=== PATIENT | male | born 1955 | race Two or more races ===

== ENCOUNTER 2022-10-07 16:00 | Inpatient (IN) | payer MEDICAID, OTHER ==
[~2022-10-07] VITALS: Ht 167.6 cm; Wt 78.2 kg
[~2022-10-07 16:00] MED LIST: AMLO-258 PO; B CO1TAB7 PO; CARV6 PO; CEPH-558 PO; CLIN300C58 PO; FURO80 PO; INSLAN SQ; LEVO25TA9 PO; NIFE-141 PO; OMEP20 PO; PRAV10TA39 PO; SEVE800T17 PO
[2022-10-07] MEDS ORDERED: DOCU-385 PO (16:13)
[2022-10-07] MEDS ORDERED: OMEP20 PO (16:13)
[2022-10-07] MEDS ORDERED: NAPR-1197 PO (16:13)
[2022-10-07] MEDS ORDERED: ACETAMINOPHEN 500 MG TABLET PO ONE (16:30)
[2022-10-07] MEDS ORDERED: CEFEPIME HCL 2 GM in DEXTROSE 5%-WATER 50 ML IV ONE (17:00)
[2022-10-07] MEDS ORDERED: VANCOMYCIN HCL 1.25 GM in DEXTROSE 5%-WATER 250 ML IV ONE (17:00)
[2022-10-07 17:15] LABS: BASOPHILS % (AUTO) 0.5 % (0.0-2.0); EOSINOPHILS % (AUTO) 3.3 % (1.0-6.0); HEMOGLOBIN 11.8 g/dL (13.5-17.5); LYMPHOCYTES # (AUTO) 1.4 K/uL (1.0-4.8); LYMPHOCYTES % (AUTO) 11.2 % (22.0-44.0); MEAN CORPUSCULAR HEMOGLOBIN 28.2 pg (26.0-34.0); MEAN CORPUSCULAR HGB CONC 31.8 G/dL (31.0-37.0); MEAN CORPUSCULAR VOLUME 89 fL (80-100); MONOCYTES # (AUTO) 1.2 K/uL (0.1-1.0); MONOCYTES % (AUTO) 9.4 % (2.0-9.0); NEUTROPHILS # (AUTO) 9.2 K/uL (1.8-7.7); NEUTROPHILS % (AUTO) 75.6 % (40.0-70.0); PLATELET COUNT (AUTO) 269 K/uL (150-450); RED BLOOD CELL COUNT(AUTO) 4.17 MIL/uL (4.50-5.90); RED CELL DISTRIBUTION WIDTH 14.2 % (11.5-14.5)
[2022-10-07] MEDS ORDERED: MORPHINE SULFATE 2 MG/ML SYRINGE IVP ONE (17:15)
[2022-10-07 17:30] LABS: ALBUMIN 4.1 g/dL (3.4-5.0); BILIRUBIN,TOTAL 0.5 mg/dL (0.1-1.0); CALCIUM, TOTAL 9.3 mg/dL (8.8-10.5); CREATININE 8.3 mg/dL (0.60-1.30); TOTAL PROTEIN, SERUM 8.4 g/dL (6.4-8.2)
[2022-10-07 17:32] LABS: LACTIC ACID 0.7 mmol/L (0.4-2.0)
[2022-10-07] MEDS ORDERED: DEXTROSE 50%-WATER 25 GM/50 ML SYRINGE IVP ONE (17:45)
[2022-10-07] MEDS ORDERED: INSULIN REGULAR, HUMAN 100 UNITS/ML IVP ONE (17:45)
[2022-10-07] MEDS ORDERED: CALCIUM GLUCONATE 100 MG/ML 10 ML IVP ONE (17:45)
[2022-10-07] MEDS ORDERED: AmLODIPine BESYLATE 10 MG TABLET PO ONE (17:45)
[2022-10-07] MEDS ORDERED: ALBUTEROL SULFATE 2.5 MG/0.5 ML 5 ML NEB SOLUTION NEB ONE (17:45)
[2022-10-07] MEDS ORDERED: ONDANSETRON HCL 4 MG/2 ML VIAL IVP PRN (18:45)
[2022-10-07] MEDS ORDERED: 0.9% SODIUM CHLORIDE 10 ML SYRINGE IVP PRN (18:45)
[2022-10-07] MEDS ORDERED: ACETAMINOPHEN 325 MG TABLET PO PRN (18:45)
[2022-10-07 19:30] VITALS: PULSE 67; RESP 16; O2SAT 100
[2022-10-07] MEDS ORDERED: ALBUTEROL SULFATE 2.5 MG/0.5 ML NEB SOLUTION NEB ONE (19:30)
[2022-10-07 21:52] VITALS: BP 131/66; PULSE 69; RESP 20; TEMP 98
[2022-10-07] MEDS ORDERED: SODIUM ZIRCONIUM CYCLOSILICATE 5 GM POWDER PACKET PO ONE (23:00)
[2022-10-08] VITALS (14 sets, daily range): BP systolic 124–161; BP diastolic 64–81; PULSE 59–97; RESP 16–19; TEMP 97.5–98.2; O2SAT 97
[2022-10-08 00:04] LABS: CALCIUM, TOTAL 8.8 mg/dL (8.8-10.5); CREATININE 8.89 mg/dL (0.60-1.30); POTASSIUM 5.1 mmol/L (3.5-5.1)
[2022-10-08 07:21] LABS: BASOPHILS % (AUTO) 1.1 % (0.0-2.0); HEMATOCRIT 34.1 % (41-53); HEMOGLOBIN 11.3 g/dL (13.5-17.5); LYMPHOCYTES # (AUTO) 1.2 K/uL (1.0-4.8); LYMPHOCYTES % (AUTO) 15.6 % (22.0-44.0); MEAN CORPUSCULAR HEMOGLOBIN 29.3 pg (26.0-34.0); MEAN CORPUSCULAR HGB CONC 33.1 G/dL (31.0-37.0); MEAN CORPUSCULAR VOLUME 88 fL (80-100); MONOCYTES # (AUTO) 0.9 K/uL (0.1-1.0); NEUTROPHILS # (AUTO) 5.4 K/uL (1.8-7.7); NEUTROPHILS % (AUTO) 68.3 % (40.0-70.0); PLATELET COUNT (AUTO) 215 K/uL (150-450); RED BLOOD CELL COUNT(AUTO) 3.85 MIL/uL (4.50-5.90)
[2022-10-08 07:52] LABS: ALBUMIN 3.3 g/dL (3.4-5.0); BILIRUBIN,TOTAL 0.7 mg/dL (0.1-1.0); CREATININE 9.57 mg/dL (0.60-1.30)
[2022-10-08 07:56] LABS: POTASSIUM 6.3 mmol/L (3.5-5.1)
[2022-10-08] MEDS ORDERED: MAGNESIUM HYDROXIDE SUSPENSION 30 ML UDCUP PO PRN (10:45)
[2022-10-08] MEDS ORDERED: BISACODYL 10 MG RECTAL RECTAL SUPPOSITORY PR PRN (10:45)
[2022-10-08] MEDS ORDERED: ACETAMINOPHEN 325 MG TABLET PO PRN (10:45)
[2022-10-08] MEDS ORDERED: ZOLPIDEM TARTRATE 5 MG TABLET PO PRN (10:45)
[2022-10-08] MEDS ORDERED: ALBUTEROL SULFATE 2.5 MG/0.5 ML NEB SOLUTION NEB PRN (10:45)
[2022-10-08] MEDS ORDERED: IPRATROPIUM BROMIDE 0.5 MG/2.5 ML NEB SOLUTION NEB PRN (10:45)
[2022-10-08] MEDS ORDERED: VANCOMYCIN 1GM/WATER(PEG/NADA) 200 ML IV PRN (11:15)
[2022-10-08] MEDS: SEVELAMER CARBONATE 800 MG TABLET PO SCH ×2 (11:56→17:06)
[2022-10-08] MEDS ORDERED: SEVELAMER CARBONATE 800 MG TABLET PO SCH (12:00)
[2022-10-08] MEDS ORDERED: DEXTROSE 50%-WATER 25 GM/50 ML SYRINGE IVP PRN (12:15)
[2022-10-08] MEDS: INSULIN LISPRO 100 UNITS/ML SQ PRN ×3 (12:34→20:51)
[2022-10-08 14:16] LABS: GLUCOMETER DEV NAME(LOC) 5N.2C
[2022-10-08 14:16] LABS: GLUCOMETER DEV NAME(LOC) 5S.1B
[2022-10-08] MEDS: HEPARIN SODIUM,PORCINE 5,000 UNITS/ML VIAL SQ SCH (17:07)
[2022-10-08] MEDS: HYDROCODONE/ACETAMINOPHEN 5-325 MG TABLET PO PRN (20:49)
[2022-10-08] MEDS: CARVEDILOL 6.25 MG TABLET PO SCH (20:49)
[2022-10-08] MEDS: DOCUSATE SODIUM 100 MG CAPSULE PO SCH (20:49)
[2022-10-08] MEDS: INSULIN GLARGINE,HUM.REC.ANLOG 100 UNITS/ML SQ SCH (20:50)
[2022-10-09] VITALS (12 sets, daily range): BP systolic 117–169; BP diastolic 55–79; PULSE 61–71; RESP 16–20; TEMP 97.4–97.9; O2SAT 98
[2022-10-09 00:16] LABS: GLUCOMETER DEV NAME(LOC) 5N.2C
[2022-10-09 00:16] LABS: GLUCOMETER DEV NAME(LOC) 5N.2C
[2022-10-09] MEDS: HEPARIN SODIUM,PORCINE 5,000 UNITS/ML VIAL SQ SCH ×4 (00:53→23:28)
[2022-10-09] MEDS: DOCUSATE SODIUM 100 MG CAPSULE PO SCH ×2 (08:39→20:13)
[2022-10-09] MEDS: AmLODIPine BESYLATE 10 MG TABLET PO SCH (08:39)
[2022-10-09] MEDS: CARVEDILOL 6.25 MG TABLET PO SCH ×2 (08:39→20:13)
[2022-10-09] MEDS: SEVELAMER CARBONATE 800 MG TABLET PO SCH ×3 (08:39→18:00)
[2022-10-09] MEDS: OMEPRAZOLE 20 MG CAPSULE PO SCH (08:39)
[2022-10-09] MEDS: ONDANSETRON HCL 4 MG/2 ML VIAL IVP PRN (09:35)
[2022-10-09 10:41] LABS: GLUCOMETER DEV NAME(LOC) 5N.2C
[2022-10-09] MEDS ORDERED: ASPI-1444 PO (11:46)
[2022-10-09] MEDS ORDERED: SITA25 PO (11:46)
[2022-10-09] MEDS ORDERED: ATOR20TA65 PO (11:46)
[2022-10-09] MEDS ORDERED: LEVO50TA11 PO (11:46)
[2022-10-09] MEDS ORDERED: INSU100I15 SQ (11:46)
[2022-10-09] MEDS ORDERED: AMLO5TAB66 PO (11:46)
[2022-10-09] MEDS ORDERED: SEVELAMER CARBONATE 800 MG TABLET PO SCH (12:00)
[2022-10-09] MEDS ORDERED: SODIUM CHLORIDE 0.9% 1,000 ML ONE (12:03)
[2022-10-09] MEDS ORDERED: BUPIVACAINE HCL/PF 0.25% 30 ML VIAL ONE (12:12)
[2022-10-09] MEDS ORDERED: ETHYL ALCOHOL 62% ANTISEPTIC NASAL SANITIZER 0.6 ML AMPUL NASAL ONE (12:45)
[2022-10-09] MEDS ORDERED: LIDOCAINE/PF 1% 30 ML VIAL ONE (13:46)
[2022-10-09] MEDS ORDERED: MUPIROCIN CALCIUM 2% 22 GM OINTMENT ONE (14:09)
[2022-10-09] MEDS: ETHYL ALCOHOL 62% ANTISEPTIC NASAL SANITIZER 0.6 ML AMPUL NASAL SCH (20:13)
[2022-10-09] MEDS: INSULIN GLARGINE,HUM.REC.ANLOG 100 UNITS/ML SQ SCH (20:19)
[2022-10-09 20:26] LABS: GLUCOMETER DEV NAME(LOC) 5N.2C
[2022-10-09 20:26] LABS: GLUCOMETER DEV NAME(LOC) 5N.2C
[2022-10-09 23:15] LABS: GLUCOMETER DEV NAME(LOC) 5N.2C
[2022-10-10] VITALS (7 sets, daily range): BP systolic 137–166; BP diastolic 67–81; PULSE 65–72; RESP 17–19; TEMP 97.5–98.2
[2022-10-10] MEDS ORDERED: MIDAZOLAM HCL 2 MG/2 ML VIAL IVP ONE (01:41)
[2022-10-10] MEDS: MORPHINE SULFATE 2 MG/ML SYRINGE IVP PRN (03:53)
[2022-10-10 07:25] LABS: BASOPHILS % (AUTO) 1.2 % (0.0-2.0); EOSINOPHILS % (AUTO) 3.5 % (1.0-6.0); HEMOGLOBIN 11.4 g/dL (13.5-17.5); LYMPHOCYTES # (AUTO) 1.2 K/uL (1.0-4.8); LYMPHOCYTES % (AUTO) 17.4 % (22.0-44.0); MEAN CORPUSCULAR HEMOGLOBIN 28.9 pg (26.0-34.0); MEAN CORPUSCULAR HGB CONC 32.6 G/dL (31.0-37.0); MEAN CORPUSCULAR VOLUME 89 fL (80-100); MONOCYTES # (AUTO) 0.9 K/uL (0.1-1.0); MONOCYTES % (AUTO) 13.1 % (2.0-9.0); NEUTROPHILS # (AUTO) 4.5 K/uL (1.8-7.7); NEUTROPHILS % (AUTO) 64.8 % (40.0-70.0); PLATELET COUNT (AUTO) 251 K/uL (150-450); RED BLOOD CELL COUNT(AUTO) 3.95 MIL/uL (4.50-5.90); RED CELL DISTRIBUTION WIDTH 13.9 % (11.5-14.5)
[2022-10-10 07:35] LABS: ALBUMIN 2.9 g/dL (3.4-5.0); BILIRUBIN,TOTAL 0.3 mg/dL (0.1-1.0); CALCIUM, TOTAL 8.3 mg/dL (8.8-10.5); CREATININE 7.3 mg/dL (0.60-1.30); POTASSIUM 4.9 mmol/L (3.5-5.1); TOTAL PROTEIN, SERUM 6.7 g/dL (6.4-8.2); VANCOMYCIN,RANDOM 11.4 mcg/mL (25.0-50.0)
[2022-10-10] MEDS ORDERED: VANCOMYCIN 1GM/WATER(PEG/NADA) 200 ML IV ONE (08:00)
[2022-10-10] MEDS: AmLODIPine BESYLATE 10 MG TABLET PO SCH (09:00)
[2022-10-10] MEDS ORDERED: CHLORHEXIDINE GLUCONATE 4% 118 ML TOPICAL LIQUID TP SCH (09:00)
[2022-10-10] MEDS: CARVEDILOL 6.25 MG TABLET PO SCH ×2 (09:00→20:52)
[2022-10-10] MEDS: DOCUSATE SODIUM 100 MG CAPSULE PO SCH ×2 (09:43→20:51)
[2022-10-10] MEDS: OMEPRAZOLE 20 MG CAPSULE PO SCH (09:43)
[2022-10-10] MEDS: HEPARIN SODIUM,PORCINE 5,000 UNITS/ML VIAL SQ SCH ×3 (09:43→23:37)
[2022-10-10] MEDS: SEVELAMER CARBONATE 800 MG TABLET PO SCH ×3 (09:43→17:43)
[2022-10-10] MEDS: HYDROCODONE/ACETAMINOPHEN 5-325 MG TABLET PO PRN (09:43)
[2022-10-10] MEDS: ETHYL ALCOHOL 62% ANTISEPTIC NASAL SANITIZER 0.6 ML AMPUL NASAL SCH (09:44)
[2022-10-10] MEDS ORDERED: SODIUM CHLORIDE 0.9% 250 ML IV ONE (10:44)
[2022-10-10] MEDS: INSULIN LISPRO 100 UNITS/ML SQ PRN (11:58)
[2022-10-10] MEDS ORDERED: VANCOMYCIN HCL 500 MG in DEXTROSE 5%-WATER 100 ML IV ONE (12:15)
[2022-10-10] MEDS: ONDANSETRON HCL 4 MG/2 ML VIAL IVP PRN (14:41)
[2022-10-10] MEDS: LISINOPRIL 20 MG TABLET PO SCH (20:52)
[2022-10-10] MEDS: INSULIN GLARGINE,HUM.REC.ANLOG 100 UNITS/ML SQ SCH (20:53)
[2022-10-10 20:56] LABS: GLUCOMETER DEV NAME(LOC) 5S.1B
[2022-10-11 01:01] LABS: GLUCOMETER DEV NAME(LOC) 5N.2C
[2022-10-11 01:01] LABS: GLUCOMETER DEV NAME(LOC) 5N.2C
[2022-10-11 01:01] LABS: GLUCOMETER DEV NAME(LOC) 5N.2C
[2022-10-11] MEDS: MORPHINE SULFATE 2 MG/ML SYRINGE IVP PRN (01:14)
[2022-10-11 04:10] VITALS: BP 151/59; PULSE 83; RESP 19; TEMP 99.5
[2022-10-11 06:46] LABS: GLUCOMETER DEV NAME(LOC) 5N.2C
[2022-10-11 07:41] VITALS: BP 162/66; PULSE 78; RESP 18; TEMP 97.3
[2022-10-11] MEDS: DOCUSATE SODIUM 100 MG CAPSULE PO SCH ×2 (08:30→20:38)
[2022-10-11] MEDS: SEVELAMER CARBONATE 800 MG TABLET PO SCH ×3 (08:30→17:14)
[2022-10-11] MEDS: HEPARIN SODIUM,PORCINE 5,000 UNITS/ML VIAL SQ SCH ×3 (08:30→23:07)
[2022-10-11] MEDS: LISINOPRIL 20 MG TABLET PO SCH (08:30)
[2022-10-11] MEDS: CARVEDILOL 6.25 MG TABLET PO SCH ×2 (08:30→20:38)
[2022-10-11] MEDS: OMEPRAZOLE 20 MG CAPSULE PO SCH (08:30)
[2022-10-11] MEDS: AmLODIPine BESYLATE 10 MG TABLET PO SCH (08:30)
[2022-10-11] MEDS: INSULIN LISPRO 100 UNITS/ML SQ PRN (11:56)
[2022-10-11 12:00] VITALS: BP 121/64; PULSE 83; RESP 18; TEMP 98.6
[2022-10-11 15:36] VITALS: BP 150/68; PULSE 67; RESP 18; TEMP 98.3
[2022-10-11 20:05] VITALS: BP 120/64; PULSE 69; RESP 20; TEMP 98
[2022-10-11] MEDS: INSULIN GLARGINE,HUM.REC.ANLOG 100 UNITS/ML SQ SCH (20:38)
[2022-10-11 23:16] LABS: GLUCOMETER DEV NAME(LOC) 5S.1B
[2022-10-11 23:16] LABS: GLUCOMETER DEV NAME(LOC) 5S.1B
[2022-10-12] VITALS (15 sets, daily range): BP systolic 122–166; BP diastolic 54–82; PULSE 63–79; RESP 18–20; TEMP 96.9–98.1
[2022-10-12 06:36] LABS: GLUCOMETER DEV NAME(LOC) 5N.1C
[2022-10-12] MEDS ORDERED: CALCITRIOL 0.25 MCG CAPSULE PO SCH (09:00)
[2022-10-12] MEDS: SEVELAMER CARBONATE 800 MG TABLET PO SCH ×3 (09:03→17:03)
[2022-10-12] MEDS: OMEPRAZOLE 20 MG CAPSULE PO SCH (09:03)
[2022-10-12] MEDS: LISINOPRIL 20 MG TABLET PO SCH (09:03)
[2022-10-12] MEDS: AmLODIPine BESYLATE 10 MG TABLET PO SCH (09:03)
[2022-10-12] MEDS: CARVEDILOL 6.25 MG TABLET PO SCH ×2 (09:03→20:13)
[2022-10-12] MEDS: HEPARIN SODIUM,PORCINE 5,000 UNITS/ML VIAL SQ SCH ×2 (09:04→16:00)
[2022-10-12] MEDS: DOCUSATE SODIUM 100 MG CAPSULE PO SCH ×2 (09:04→20:13)
[2022-10-12] MEDS ORDERED: CeFAZolin 2 GM/DEXTROSE 50 ML IV SCH (13:00)
[2022-10-12] MEDS ORDERED: LISI-894 PO (16:38)
[2022-10-12] MEDS ORDERED: AMLO-258 PO (16:38)
[2022-10-12] MEDS ORDERED: CALC0.2521 PO (16:38)
[2022-10-12] MEDS: INSULIN LISPRO 100 UNITS/ML SQ PRN ×2 (17:13→20:15)
[2022-10-12 17:26] LABS: GLUCOMETER DEV NAME(LOC) 5N.1C
[2022-10-12] MEDS: INSULIN GLARGINE,HUM.REC.ANLOG 100 UNITS/ML SQ SCH (20:14)
[2022-10-13] MEDS: HEPARIN SODIUM,PORCINE 5,000 UNITS/ML VIAL SQ SCH ×4 (00:23→16:00)
[2022-10-13 00:55] VITALS: BP 137/67; PULSE 63; RESP 18; TEMP 98
[2022-10-13 04:00] VITALS: BP 146/58; PULSE 64; RESP 18; TEMP 97.6
[2022-10-13 06:36] LABS: GLUCOMETER DEV NAME(LOC) 5S.1B
[2022-10-13 06:36] LABS: GLUCOMETER DEV NAME(LOC) 5S.1B
[2022-10-13 06:36] LABS: GLUCOMETER DEV NAME(LOC) 5S.1B
[2022-10-13 07:37] VITALS: BP 145/75; PULSE 66; RESP 18; TEMP 98.3
[2022-10-13] MEDS: OMEPRAZOLE 20 MG CAPSULE PO SCH (07:51)
[2022-10-13] MEDS: AmLODIPine BESYLATE 10 MG TABLET PO SCH (07:51)
[2022-10-13] MEDS: HYDROCODONE/ACETAMINOPHEN 5-325 MG TABLET PO PRN ×3 (07:51→16:35)
[2022-10-13] MEDS: DOCUSATE SODIUM 100 MG CAPSULE PO SCH (07:51)
[2022-10-13] MEDS: SEVELAMER CARBONATE 800 MG TABLET PO SCH ×2 (07:51→11:57)
[2022-10-13] MEDS: LISINOPRIL 20 MG TABLET PO SCH (07:51)
[2022-10-13] MEDS: CARVEDILOL 6.25 MG TABLET PO SCH (07:51)
[2022-10-13 11:45] VITALS: BP 128/68; PULSE 67; RESP 20; TEMP 98.2
[2022-10-13] MEDS: INSULIN LISPRO 100 UNITS/ML SQ PRN (11:54)
[2022-10-13 15:48] VITALS: BP 130/60; RESP 18; TEMP 98.1
[2022-10-14 02:01] LABS: GLUCOMETER DEV NAME(LOC) 5N.1C
[2022-10-14 18:37] LABS: GLUCOMETER DEV NAME(LOC) 5N.2C
== END 2022-10-13 18:00 | disposition home or self-care (01) | DRG 952 ==
LOC: EMS 16:01 → 5S 18:37
PROVIDERS: ADMIT Hospitalist; ATTEND Hospitalist
PROC: 5A1D70Z Performance of Urinary Filtration, Intermittent, Less than 6 Hours Per Day (ICD-10-PCS; principal; 2022-10-08)
PROC: 0X6P0Z0 Detachment at Left Index Finger, Complete, Open Approach (ICD-10-PCS; 2022-10-09)
PROC: 5A1D70Z Performance of Urinary Filtration, Intermittent, Less than 6 Hours Per Day (ICD-10-PCS; 2022-10-09)
PROC: 5A1D70Z Performance of Urinary Filtration, Intermittent, Less than 6 Hours Per Day (ICD-10-PCS; 2022-10-12)
DX: E11.69 Type 2 diabetes mellitus with other specified complication (principal); I12.0 Hypertensive chronic kidney disease with stage 5 chronic kidney disease or end stage renal disease; R78.81 Bacteremia; E11.22 Type 2 diabetes mellitus with diabetic chronic kidney disease; M86.8X8 Other osteomyelitis, other site; D63.1 Anemia in chronic kidney disease; E83.39 Other disorders of phosphorus metabolism; S61.205A Unspecified open wound of left ring finger without damage to nail, initial encounter; N18.6 End stage renal disease; B95.61 Methicillin susceptible Staphylococcus aureus infection as the cause of diseases classified elsewhere; S61.207A Unspecified open wound of left little finger without damage to nail, initial encounter; E03.9 Hypothyroidism, unspecified; L08.9 Local infection of the skin and subcutaneous tissue, unspecified; E87.5 Hyperkalemia; I99.8 Other disorder of circulatory system; M12.842 Other specific arthropathies, not elsewhere classified, left hand; X58.XXXA Exposure to other specified factors, initial encounter; L53.9 Erythematous condition, unspecified; E78.5 Hyperlipidemia, unspecified; Z99.2 Dependence on renal dialysis; Z79.4 Long term (current) use of insulin; Z79.899 Other long term (current) drug therapy; Y93.89 Activity, other specified; Y92.89 Other specified places as the place of occurrence of the external cause; Y99.8 Other external cause status
CPT/HCPCS: 73218; 80048; 80053; 80202; 82962; 83605; 84132; 85025; 87040; 87070; 87077; 87081; 87186; 87205; 87340; 88305; 90935; 93005; 94644; 99291; J0610; J0690; J0692; J1644; J1815; J2250; J2270; J2405; J3370; J3490; J7030; J7050; J7060; Q9967